=== PATIENT | female | born 1995 | race American Indian/Alaskan Native ===

== ENCOUNTER 2018-10-29 14:35 | Emergency (ER) | payer SELFPAY ==
[2018-10-29 16:00] LABS: ALB/GLOB RATIO 1.4 (1.0-2.1); ALBUMIN 4.6 g/dL (3.5-5.0); ALT/SGPT 11 U/L (9-52); AST/SGOT 19 U/L (14-36); BLOOD UREA NITROGEN 9 mg/dL (7-17); GFR NON-AFRICAN AMERICAN > 60
[2018-10-29 16:38] LABS: BASO % 0.4 % (0.0-2.0); EOS # 0.1 K/uL (0.0-0.7); EOS % 0.7 % (0.0-4.0); HEMOGLOBIN 13.7 g/dL (11.0-16.0); LYMPH # 1.7 K/uL (1.0-4.3); LYMPH % 22.5 % (20.0-40.0); MEAN CELL VOLUME 91.6 fL (81.0-99.0); MEAN CORPUSCULAR HEMOGLOBIN 29.6 pg (27.0-31.0); MEAN CORPUSCULAR HGB CONC 32.3 g/dL (33.0-37.0); MEAN PLATELET VOLUME 9.8 fL (7.2-11.7); MONO # 0.4 K/uL (0.0-0.8); MONO % 4.9 % (0.0-10.0); NEUT # 5.2 K/uL (1.8-7.0); NEUT % 71.5 % (50.0-75.0); NRBC % 0.1 % (0.0-2.0); RBC 4.62 Mil/uL (3.80-5.20); WHITE BLOOD COUNT 7.3 K/uL (4.8-10.8)
--- NOTE | 2018-10-29 17:17 | US ---
Date of service: 10/29/2018 PROCEDURE: OB Pelvic Ultrasound HISTORY: 6 week with vaginal bleeding COMPARISON: None available. FINDINGS: UTERUS: Single Live intrauterine gestation. CRL measures 0.52 cm equivalent to 6 weeks and 2 days of gestational age. Gestational sac diameter measures 1.81 cm equivalent to 6 weeks and 1 day of gestational age. age (Ultrasound estimated): 6 weeks and 2 days Date of delivery (Ultrasound estimated) : 06/22/2019 Heart rate: 114 bpm. Ivy-gestational hemorrhage: There is a 0.7 x 0.5 x 0.8 cm subchorionic hemorrhage.. Uterus measures 10.9 x 6.2 x 6.0 cm. No mass CERVIX: Long and closed. No cervical abnormality seen. RIGHT OVARY: Measures 3.3 x 2.3 x 3.5 cm. No mass. Normal flow. There is a 2.0 x 1.5 x 1.8 cm complicated/corpus luteum cyst. LEFT OVARY: Measures 3.2 x 1.7 x 2.3 cm. No mass. Normal flow. FREE FLUID: None. OTHER FINDINGS: None. IMPRESSION: Single live intrauterine gestation with mean gestational age of 6 weeks and 2 days. The estimated date of delivery by ultrasound is 06/22/2019. The ultrasound dates correspond with the clinical dates 0.7 x 0.5 x 0.8 cm subchorionic hemorrhage. Clinical follow-up is advised.
--- NOTE | 2018-10-29 17:32 | C.PDOC ---
History Of Present Illness Patient is a 23 year old female who presents to the ED for medical evaluation of worsening right sided pelvic pain and vaginal bleeding that began today. Patient was seen at [facility] on October 23 with a US done showing evidence of intrauterine gestational sac and small probable subchorionic hemorrhage. Patient was advised to follow up with OBGYN, but presents today due to 8/10 pelvic pain and bright red vaginal bleeding with reported blood clot that was dime size as per patient. She denies any nausea, vomiting, abdominal pain, dizziness, weakness, CP, or SOB. Chief Complaint (Nursing): Female Genitourinary History Per: Patient History/Exam Limitations: no limitations Pain Scale Rating Of: 8 Quality Of Discomfort: "Pain" (pelvic ) Associated Symptoms: denies: Nausea, Vomiting, Chest Pain Recent travel outside of the [place]: No Additional History Per: Patient Abnormal Vaginal Bleeding: Yes Past Medical History Reviewed: Historical Data, Nursing Documentation, Vital Signs - Medical History PMH: No Chronic Diseases Surgical History: No Surg Hx Family History: States: No Known Family Hx - Social History Hx Alcohol Use: Yes Hx Substance Use: No Review Of Systems Cardiovascular: Negative for: Chest Pain Respiratory: Negative for: Shortness of Breath Gastrointestinal: Negative for: Nausea, Vomiting, Abdominal Pain Genitourinary: Positive for: Vaginal Bleeding (with blood clot ), Pelvic Pain Neurological: Negative for: Weakness, Dizziness Physical Exam - Physical Exam Appears: Non-toxic, No Acute Distress Skin: Normal Color, Warm, Dry Head: Atraumatic, Normacephalic Neck: Normal ROM, Supple Chest: Symmetrical Cardiovascular: Rhythm Regular Respiratory: Normal Breath Sounds Gastrointestinal/Abdominal: Soft, No Tenderness Neurological/Psych: Oriented x3, Normal Speech, Normal Cognition ED Course And Treatment - Laboratory Results Result Diagrams: 10/29/18 16:23 10/29/18 15:35 Lab Results: Total Bilirubin 0.9 mg/dL (0.2-1.3) 10/29/18 15:35 AST 19 U/L (14-36) 10/29/18 15:35 ALT 11 U/L (9-52) 10/29/18 15:35 Alkaline Phosphatase 45 U/L (38-126) 10/29/18 15:35 Total Protein 7.9 g/dL (6.3-8.3) 10/29/18 15:35 Albumin 4.6 g/dL (3.5-5.0) 10/29/18 15:35 Globulin 3.3 gm/dL (2.2-3.9) 10/29/18 15:35 Albumin/Globulin Ratio 1.4 (1.0-2.1) 10/29/18 15:35 Beta HCG, Quant 21242.00 mIU/ML 10/29/18 15:35 - CT Scan/US US Preg Other Rad Studies (CT/US): Read By Radiologist, Radiology Report Reviewed CT/US Interpretation: IMPRESSION: Single live intrauterine gestation with mean gestational age of 6 weeks and 2 days. The estimated date of delivery by ultrasound is 06/22/2019. The ultrasound dates correspond with the clinical dates. 0.7 x 0.5 x 0.8 cm subchorionic hemorrhage. Clinical follow-up is advised. Medical Decision Making Medical Decision Making: Plan: threatened Labs, UA, and Sono ordered Results reviewed with patient and advised to follow up with [facility]POR[facility] RECEPTION[facility] in 1-2 days Patient verbalized understanding and is in agreement with plan Patient is stable for discharge Disposition Counseled Patient/Family Regarding: Studies Performed, Diagnosis, Need For Followup, Rx Given - Disposition Referrals: [facility] [Outside] Disposition: HOME/ ROUTINE Disposition Time: 17:32 Condition: STABLE Additional Instructions: LIDA JOSUE, thank you for letting us take care of you today. Your provider was Joy Lazaro MD/Kenny Barkley PA-C and you were treated for Threatened . The emergency medical care you received today was directed at your acute symptoms. If you were prescribed any medication, please fill it and take as directed. It may take several days for your symptoms to resolve. Return to the Emergency Department if your symptoms worsen, do not improve, or if you have any other problems. Please contact your doctor or call one of the physicians/clinics you have been referred to that are listed on the Patient Visit Information form that is included in your discharge packet. Bring any paperwork you were given at the [facility] specialty hospital with you along with any medications you are taking to your follow up visit. Our treatment cannot replace ongoing medical care by a primary care provider outside of the emergency department. Thank you for allowing the [facility] team to be part of your care today. Instructions: Threatened Miscarriage (DC), Bleeding With (DC) Forms: [employer] (Sudanese) - Clinical Impression Clinical Impression: Threatened in first trimester - PA / JUNIOR JAVA DEVELOPER / Resident Statement MD/DO has reviewed & agrees with the documentation as recorded. - Scribe Statement The provider has reviewed the documentation as recorded by the Chicaibcaroline Lu All medical record entries made by the Scribe were at my direction and pe rsonally dictated by me. I have reviewed the chart and agree that the record accurately reflects my personal performance of the history, physical exam, medical decision making, and the department course for this patient. I have also personally directed, reviewed, and agree with the discharge instructions and disposition.
[2018-10-29 17:59] LABS: SQUAMOUS EPITHIAL 1 /hpf (0-5); URINE BACTERIA RARE (<OCC); URINE BILIRUBIN NEGATIVE (NEGATIVE); URINE BLOOD 2+ (NEGATIVE); URINE CLARITY Clear (Clear); URINE COLOR Straw (YELLOW); URINE GLUCOSE (UA) NORMAL (Normal); URINE LEUKOCYTE ESTERASE NEG Leu/uL (Negative); URINE PROTEIN NEGATIVE (NEGATIVE); URINE UROBILINOGEN NORMAL mg/dL (0.2-1.0)
== END 2018-10-29 17:41 | disposition home or self-care (01) ==
LOC: C.ER 14:35
DX: O20.0 Threatened abortion (principal); Z3A.01 Less than 8 weeks gestation of pregnancy